=== PATIENT | male | born 1940 | race Asian ===

== ENCOUNTER 2020-06-10 11:39 | Emergency (ER) | payer MEDICARE, OTHER ==
[~2020-06-10] VITALS: Ht 170.2 cm; Wt 72.7 kg
[~2020-06-10 11:39] MED LIST: ASPI-1111 PO; ATOR40TA28 PO; FAMO20 PO; ISOS10TA16 PO; METO25 PO; OMEG10005 PO; RANO500T3 PO; SULF1TAB42 PO
[2020-06-10] MEDS ORDERED: RANO500T3 PO (11:43)
[2020-06-10] MEDS ORDERED: PROPARACAINE HCL 0.5% 15 ML OPHTHALMIC SOLUTION OS ONE (14:15)
[2020-06-10 14:47] LABS: BASOPHILS % (AUTO) 0.9 % (0.0-2.0); HEMATOCRIT 41.7 % (41-53); HEMOGLOBIN 13.2 g/dL (13.5-17.5); LYMPHOCYTES # (AUTO) 1.8 K/uL (1.0-4.8); MEAN CORPUSCULAR HEMOGLOBIN 21.9 pg (26.0-34.0); MEAN CORPUSCULAR HGB CONC 31.7 G/dL (31.0-37.0); MEAN CORPUSCULAR VOLUME 69 fL (80-100); MONOCYTES # (AUTO) 0.6 K/uL (0.1-1.0); MONOCYTES % (AUTO) 10.3 % (2.0-9.0); NEUTROPHILS # (AUTO) 3.4 K/uL (1.8-7.7); NEUTROPHILS % (AUTO) 56.8 % (40.0-70.0); PLATELET COUNT (AUTO) 200 K/uL (150-450); RED BLOOD CELL COUNT(AUTO) 6.02 MIL/uL (4.50-5.90); RED CELL DISTRIBUTION WIDTH 16.7 % (11.5-14.5)
[2020-06-10 14:55] LABS: CARBON DIOXIDE 28 mmol/L (22-29); CHLORIDE 101 mmol/L (98-107); POTASSIUM 4.3 mmol/L (3.5-5.1); SODIUM SERUM 138 mmol/L (136-145)
[2020-06-10 14:56] LABS: ANION GAP 9 mmol/L (8-16); CALCIUM, TOTAL 9.2 mg/dL (8.8-10.5); CREATININE 0.94 mg/dL (0.60-1.30); GLOMERULAR FILTR. RATE CALC > 60 mL/min (>60); GLUCOSE,RANDOM 114 mg/dL (70-110); UREA NITROGEN, BLOOD 11 mg/dL (7-18)
[2020-06-10 15:02] LABS: ALANINE AMINOTRANSFERASE 44 U/L (12-78); ALBUMIN 4.1 g/dL (3.4-5.0); ALKALINE PHOSPHATASE 92 U/L (46-116); ASPARTATE AMINOTRANSFERASE 26 U/L (15-37); BILIRUBIN,TOTAL 0.4 mg/dL (0.1-1.0); TOTAL PROTEIN, SERUM 7.4 g/dL (6.4-8.2)
[2020-06-10 16:06] LABS: ERYTHROCYTE SEDIMENTATION RATE 2 MM/HR (0-15)
[2020-06-10] MEDS ORDERED: FLUORESCEIN SODIUM 1 MG STRIP ONE (16:53)
[2020-06-10 17:06] LABS: PROTHROMBIN TIME 10.7 SEC (9.4-11.6)
[2020-06-10 17:30] VITALS: BP 162/77
== END 2020-06-10 18:01 | disposition home or self-care (01) ==
LOC: EMS 11:44
DX: H54.40 Blindness, one eye, unspecified eye (principal); Z79.82 Long term (current) use of aspirin
CPT/HCPCS: 70450; 85651; 99173